=== PATIENT | male | born 1985 | race African-American/Black ===

== ENCOUNTER 2018-06-23 23:34 | Emergency (ER) | payer OTHER ==
[~2018-06-23] VITALS: Ht 170.2 cm; Wt 72.6 kg
[2018-06-23 23:41] VITALS: BP 130/81
[2018-06-23] MEDS ORDERED: MULTIVITAMINS1 EAC7 PO (23:45)
[2018-06-24 00:18] LABS: URINE BILIRUBIN NEGATIVE (Negative); URINE BLOOD NEGATIVE (Negative); URINE CLARITY CLEAR; URINE COLOR YELLOW; URINE GLUCOSE-RANDOM* NEGATIVE (Negative); URINE KETONES NEGATIVE (Negative); URINE LEUKOCYTES NEGATIVE (Negative); URINE NITRITE NEGATIVE (Negative); URINE PROTEIN (DIPSTICK) NEGATIVE (Negative); URINE SPECIFIC GRAVITY <= 1.005 (1.005-1.035); URINE UROBILINOGEN 0.2 E.U./dl (0.2-1.0)
[2018-06-24] MEDS ORDERED: NORCO 5-325 TA1 EACH PO (00:28)
== END 2018-06-24 00:41 | disposition home or self-care (01) ==
LOC: ER 23:34
PROVIDERS: Emergency Medicine
DX: M54.5 Low back pain (principal)